=== PATIENT | male | born 1980 | race African-American/Black ===

== ENCOUNTER 2022-12-31 11:33 | Emergency (ER) | payer MEDICAID ==
[~2022-12-31] VITALS: Ht 177.8 cm; Wt 90.6 kg
[~2022-12-31 11:33] MED LIST: NORPTMEDS CO
[2022-12-31 13:50] VITALS: BP 129/86
[2022-12-31] MEDS ORDERED: CEPH500C PO (15:25)
[2022-12-31] MEDS ORDERED: TETANUS-DIPTH-ACEL PERTUSSIS 0.5ML SYR Tdap IM ONE (15:30)
== END 2022-12-31 15:28 | disposition home or self-care (01) ==
LOC: ER 11:33
DX: S61.011A Laceration without foreign body of right thumb without damage to nail, initial encounter (principal); Z79.899 Other long term (current) drug therapy; X58.XXXA Exposure to other specified factors, initial encounter; Y93.89 Activity, other specified; Y92.89 Other specified places as the place of occurrence of the external cause; Y99.8 Other external cause status
CPT/HCPCS: 12002; 73130; 90471; 90715